=== PATIENT | female | born 1945 | race Hispanic/Latino ===

== ENCOUNTER 2016-11-28 04:58 | Emergency (ER) | payer MEDICARE, BC ==
[2016-11-28 05:10] VITALS: BMI 29.8
[2016-11-28 05:11] VITALS: TEMP 97.9
--- NOTE | 2016-11-28 05:28 | ED PDOC ---
Arrival/HPI - General Chief Complaint: Back Pain Time Seen by Provider: 11/28/16 05:02 Historian: Patient - History of Present Illness Narrative History of Present Illness (Text): 11/28/16 05:25 Radha Sy is a 71 year old female, with a history of CAD, hypertension, hypercholesterolemia, and labyrinthitis, presents to the emergency department complaining of 3 day duration of left flank pain. States pain is worsened with movement. States that her routine physical at PMD's office showed UTI and was started on antibiotics yesterday. Patient took first dose of antibiotics yesterday, but states she woke up from sleep due to sharp pain to Left flank area. Denies any burning while urinating. Denies any fever, chills, headache, dizziness, chest pain, shortness of breath, nausea, vomiting, diarrhea, or any other complaints at this time. PMD: Dr. Hebert Time/Duration: < week (3 days ) Symptom Onset: Gradual Symptom Course: Worsening Severity Level: Mild Activities at Onset: Light Past Medical History - Provider Review Nursing Documentation Reviewed: Yes - Cardiac Hx Cardiac Disorders: Yes - Pulmonary Hx Respiratory Disorders: No - Neurological Hx Neurological Disorder: No - HEENT Hx HEENT Disorder: Yes Other/Comment: labyrinthitis - Renal Hx Renal Disorder: No - Endocrine/Metabolic Hx Endocrine Disorders: No - Hematological/Oncological Hx Blood Disorders: No - Integumentary Hx Dermatological Disorder: No - Musculoskeletal/Rheumatological Hx Musculoskeletal Disorders: No - Gastrointestinal Hx Gastrointestinal Disorders: No - Genitourinary/Gynecological Hx Genitourinary Disorders: No - Psychiatric Hx Psychophysiologic Disorder: No Hx Substance Use: No - Surgical History Hx Tonsillectomy: Yes Other/Comment: Sinus surgery Family/Social History - Physician Review Nursing Documentation Reviewed: Yes Family/Social History: No Known Family HX Smoking Status: Former Smoker Hx Alcohol Use: Yes (1 glass of wine every week) Hx Substance Use: No Allergies/Home Meds Allergies/Adverse Reactions: Allergies Sulfa (Sulfonamide Antibiotics) Allergy (Verified 11/28/16 05:04) RASH Home Medications: Home Meds Medication Instructions Recorded Confirmed Atorvastatin [Lipitor] 10 mg PO DAILY 11/28/16 11/28/16 Ciprofloxacin [Cipro] 250 mg PO BID 11/28/16 11/28/16 Phenazopyridine [Phenazopyridine 200 mg PO TID 11/28/16 11/28/16 HCl] Potassium Chloride [Klor-Con 10] meq PO TID 11/28/16 hydroCHLOROthiazide [Hydrodiuril] 50 mg PO DAILY 11/28/16 11/28/16 Review of Systems - Physician Review All systems were reviewed & negative as marked: Yes - Review of Systems Constitutional: Normal. absent: Fatigue, Fevers Respiratory: Normal. absent: SOB, Cough, Sputum Cardiovascular: Normal. absent: Chest Pain, Palpitations Gastrointestinal: Normal. absent: Abdominal Pain, Diarrhea, Nausea, Vomiting Genitourinary Female: Frequency. absent: Dysuria Musculoskeletal: Back Pain (left CVA ) Neurological: Normal. absent: Headache, Dizziness Psychiatric: Normal Physical Exam Vital Signs Reviewed: Yes Vital Signs Temp Pulse Resp BP Pulse Ox 11/28/16 06:54 77 17 156/73 H 97 11/28/16 05:10 97.9 F 81 16 140/90 98 Temperature: Afebrile Blood Pressure: Normal Pulse: Regular Respiratory Rate: Normal Appearance: Positive for: Well-Appearing, Non-Toxic, Comfortable Pain Distress: None Mental Status: Positive for: Alert and Oriented X 3 - Systems Exam Head: Present: Atraumatic, Normocephalic Pupils: Present: PERRL Conjunctiva: Present: Normal Mouth: Present: Moist Mucous Membranes Respiratory/Chest: Present: Clear to Auscultation, Good Air Exchange. No: Respiratory Distress, Accessory Muscle Use Cardiovascular: Present: Regular Rate and Rhythm, Normal S1, S2. No: Murmurs Abdomen: Present: Normal Bowel Sounds. No: Tenderness, Distention, Peritoneal Signs, Rebound, Guarding Back: Present: CVA Tenderness (left CVA tenderness ) Upper Extremity: Present: Normal Inspection. No: Cyanosis, Edema Lower Extremity: Present: Normal Inspection. No: Edema Neurological: Present: GCS=15, CN II-XII Intact, Speech Normal, Motor Func Grossly Intact, Normal Sensory Function Skin: Present: Warm, Dry, Normal Color. No: Rashes Psychiatric: Present: Alert, Oriented x 3, Normal Insight, Normal Concentration Medical Decision Making ED Course and Treatment: the pt appears well, no signs of sepsis. her pain is controlled. I discussed option of admission for further IV abx but she would rather attempt PO abx at home and will return if worse which also feel is reasonable. - Lab Interpretations Microbiology Results: Microbiology Results 11/28/16 05:45 Urine Urine Culture - Final Gram Positive Cocci Lab Results: 11/28/16 05:30 11/28/16 05:30 Lab Results 11/28/16 05:45: Urine Color Yellow, Urine Appearance Sl cloudy, Urine pH 6.0, Ur Specific [place] 1.010, Urine Protein Negative, Urine Glucose (UA) Negative, Urine Ketones Negative, Urine Blood Negative, Urine Nitrate Positive H, Urine Bilirubin Negative, Urine Urobilinogen 1.0 H, Ur Leukocyte Esterase Small H, Urine RBC 0 - 2, Urine WBC 2 - 5, Ur Epithelial Cells 1 - 3, Urine Bacteria Few 11/28/16 05:30: Sodium 139, Potassium 3.5 L, Chloride 100, Carbon Dioxide 32, Anion Gap 11, BUN 22 H, Creatinine 0.8, Est GFR ( Amer) > 60, Est GFR ( Non-Af Amer) > 60, Random Glucose 111 H, Calcium 9.3, Total Bilirubin 1.0, AST 31, ALT 41, Alkaline Phosphatase 68, Total Protein 7.4, Albumin 4.2, Globulin 3.2, Albumin/Globulin Ratio 1.3 11/28/16 05:30: WBC 5.9, RBC 4.83, Hgb 14.7, Hct 42.7, MCV 88.4, MCH 30.4, MCHC 34.4, RDW 13.3, Plt Count 199, MPV 9.1, Gran % 56.9, Lymph % (Auto) 29.1, [place] % (Auto) 8.8 H, Eos % (Auto) 4.9, Baso % (Auto) 0.3, Gran # 3.36, Lymph # 1.7, Bremer # 0.5, Eos # 0.3, Baso # 0.02 - RAD Interpretation Radiology Orders: 11/28/16 05:23 ABD & PELVIS W/O PO OR IV CONT [CT] Stat - Medication Orders Current Medication Orders: Discontinued Medications Sodium Chloride (Sodium Chloride 0.9%) 1,000 mls @ 999 mls/hr IV .Q1H1M STA Stop: 11/28/16 07:00 Last Admin: 11/28/16 06:04 Dose: 999 mls/hr Ceftriaxone Sodium (Rocephin 1 Gram Ivpb) 1 gm in 100 mls @ 200 mls/hr IVPB STAT STA PRN Reason: Protocol Stop: 11/28/16 06:42 Last Admin: 11/28/16 06:24 Dose: 200 mls/hr Ketorolac Tromethamine (Toradol) 10 mg IVP STAT STA Stop: 11/28/16 05:25 Last Admin: 11/28/16 05:53 Dose: 10 mg - Scribe Statement The provider has reviewed the documentation as recorded by the Shmuelibwood Berg Provider Attestation: Provider Scribe Attestation: All medical record entries made by the Shmuelibe were at my direction and personally dictated by me. I have reviewed the chart and agree that the record accurately reflects my personal performance of the history, physical exam, medical decision making, and the department course for this patient. I have also personally directed, reviewed, and agree with the discharge instructions and disposition. Disposition/Present on Arrival - Present on Arrival Any Indicators Present on Arrival: No History of DVT/PE: No History of Uncontrolled Diabetes: No Urinary Catheter: No History of Decub. Ulcer: No History Surgical Site Infection Following: None - Disposition Have Diagnosis and Disposition been Completed?: Yes Diagnosis: Pyelonephritis Disposition: HOME/ ROUTINE Disposition Time: 07:15 Condition: STABLE Discharge Instructions (ExitCare): Acute Pyelonephritis (ED) Additional Instructions: Please follow up with your doctor. Return to the ER for any worsening symptoms or for any other concerns. Prescriptions: Cephalexin [cephalexin] 500 mg PO BID #20 cap Referrals: Hong Hebert MD [Primary Care Provider] - Follow up with primary
[2016-11-28 05:39] LABS: ADD MANUAL DIFF? NO
[2016-11-28 05:55] LABS: ALB/GLOB RATIO 1.3 (1.1-1.8); ALKALINE PHOSPHATASE 68 U/L (38-133); ALT/SGPT 41 U/L (7-56); AST/SGOT 31 U/L (15-39); BLOOD UREA NITROGEN 22 mg/dL (7-21); CALCIUM 9.3 mg/dL (8.4-10.5); CARBON DIOXIDE 32 mmol/L (21-33); CHLORIDE 100 mmol/L (98-107); GFR AFRICAN-AMERICAN > 60; GLUCOSE,RANDOM 111 mg/dL (70-110); POTASSIUM 3.5 mmol/L (3.6-5.0); SODIUM 139 mmol/L (132-148); TOTAL PROTEIN 7.4 g/dL (5.8-8.3)
[2016-11-28] MEDS ORDERED: Sodium Chloride 0.9% 1,000 ML IV STA (06:00)
[2016-11-28 06:11] LABS: URINE BILIRUBIN NEGATIVE (NEGATIVE); URINE BLOOD NEGATIVE (NEGATIVE); URINE GLUCOSE (UA) NEGATIVE (NEGATIVE); URINE KETONE NEGATIVE (NEGATIVE); URINE LEUKOCYTE ESTERASE SMALL Leu/uL (NEGATIVE); URINE PROTEIN NEGATIVE mg/dL (<30 mg/dL)
[2016-11-28 06:12] LABS: URINE APPEARANCE SL CLOUDY (CLEAR); URINE COLOR YELLOW (YELLOW)
[2016-11-28 06:13] LABS: BASO # 0.02 K/mm3 (0.0-2.0); BASO % 0.3 % (0.0-3.0); EOS # 0.3 (0.0-0.7); EOS % 4.9 % (1.5-5.0); GRAN # 3.36 (1.4-6.5); GRAN % 56.9 % (50.0-68.0); HEMATOCRIT 42.7 % (36.0-48.0); LYMPH # 1.7 (1.2-3.4); LYMPH % 29.1 % (22.0-35.0); MEAN CELL VOLUME 88.4 fL (80.0-105.0); MEAN CORPUSCULAR HEMOGLOBIN 30.4 pg (25.0-35.0); MEAN CORPUSCULAR HGB CONC 34.4 g/dl (31.0-37.0); MEAN PLATELET VOLUME 9.1 fl (7.0-11.0); MONO # 0.5 (0.1-0.6); MONO % 8.8 % (1.0-6.0); PLATELET COUNT 199 10^3/uL (120.0-450.0); RED CELL DISTRIBUTION WIDTH 13.3 % (11.5-14.5); WHITE BLOOD COUNT 5.9 10^3/ul (4.5-11.0)
[2016-11-28] MEDS ORDERED: cefTRIAXone 1 gm 1 GM/100 ML BAG IVPB STA (06:13)
[2016-11-28 06:19] LABS: URINE RBC 0 - 2 /hpf (0-2)
[2016-11-28 06:20] LABS: URINE BACTERIA FEW (NEG)
[2016-11-28 06:55] VITALS: BP 156/73; PULSE 77; RESP 17; O2SAT 97
--- NOTE | 2016-11-28 10:17 | CT ---
PROCEDURE: CT Abdomen and Pelvis without intravenous contrast HISTORY: left side back pain r/o ureteral stone COMPARISON: None. TECHNIQUE: Technique. Contrast Dose: Radiation dose: Total exam DLP = 1148 mGy-cm. This CT exam was performed using one or more of the following dose reduction techniques: Automated exposure control, adjustment of the mA and/or kV according to patient size, and/or use of iterative reconstruction technique. FINDINGS: LOWER THORAX: Unremarkable. LIVER: Unremarkable. No gross lesion or ductal dilatation. GALLBLADDER AND BILE DUCTS: Unremarkable. PANCREAS: Unremarkable. No gross lesion or ductal dilatation. SPLEEN: Unremarkable. ADRENALS: Unremarkable. No mass. KIDNEYS AND URETERS: 64 millimeter complex cyst along the right kidney, lower pole with thin calcified septations.. No hydronephrosis. No solid mass. VASCULATURE: Unremarkable. No aortic aneurysm. BOWEL: Colonic diverticulosis. No obstruction. No gross mural thickening. APPENDIX: Unremarkable. Normal appendix. PERITONEUM: Unremarkable. No free fluid. No free air. LYMPH NODES: Unremarkable. No enlarged lymph nodes. BLADDER: Unremarkable. REPRODUCTIVE: Unremarkable. BONES: No acute fracture. OTHER FINDINGS: None. IMPRESSION: 64 millimeter complex cyst along the right kidney, lower pole with thin calcified septations. No hydronephrosis. Colonic diverticulosis.
== END 2016-11-28 07:20 | disposition home or self-care (01) ==
LOC: ED 04:58
DX: N12 Tubulo-interstitial nephritis, not specified as acute or chronic (principal); I10 Essential (primary) hypertension; E78.00 Pure hypercholesterolemia, unspecified; I25.10 Atherosclerotic heart disease of native coronary artery without angina pectoris
CPT/HCPCS: 74176; 80053; 81001; 85025; 87086; 96365; 96375; 99283; J0696; J1885; J7040